=== PATIENT | male | born 1960 | race Caucasian/White ===

== ENCOUNTER 2016-10-20 06:10 | Emergency (ER) ==
[2016-10-20 06:18] VITALS: BP 168/105
[2016-10-20] MEDS ORDERED: NAPROSYN PO ONE (07:24)
[2016-10-20] MEDS ORDERED: ROBAXIN PO ONE (07:25)
--- NOTE | 2016-10-20 07:31 | PROVIDER DOCUMENTATION ---
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 it has been over a year since he has had a spell and asks if a steroid shot would help and i advised him that there is no evidence of improvement and a risk of infectious complications Review of Systems - Adult - REVIEW OF SYSTEMS - ADULT Constitutional: denies: chills, fever Eyes: denies: discharge, blurred vision Ears, Nose, Mouth & Throat: denies: hearing loss, sinus problem Cardiovascular: denies: chest pain, heart murmur, irregular heart rate Respiratory: denies: chronic cough, shortness of breath Gastrointestinal: denies: abdominal pain, frequent heartburn Genitourinary: denies: dysuria, hematuria Musculoskeletal: reports: muscle aches. denies: bone pain, joint pain, muscle weakness Integumentary: denies: itching, rash Neurological: denies: dizziness/vertigo, numbness, tremors Hematologic/Lymphatic: denies: low blood count, lymphedema Allergic/Immunologic: denies: eczema, frequent infections, hives Past History - Adult - PAST MEDICAL HISTORY-ADULT Review of Records: reports: Nursing Assessment Review, Medications Reviewed Major Childhood Illnesses: reports: denies history Cardiovascular: reports: HTN Respiratory: reports: denies history Gastrointestinal: reports: denies history Obstetrical/Gynecological: reports: denies history Genitourinary: reports: denies history Musculoskeletal: reports: denies history Neurological: reports: denies history Endocrine/Immune: reports: denies history Other Conditions: reports: denies history - IMMUNIZATION STATUS Childhood Immunizations: See Nurse Assessment Flu Vaccine: See Nurse Assessment - FAMILY HISTORY Family History: reviewed, not pertinent Physical Exam-Injury Related - Physical Exam-Injury Related Initial Vital Signs Reviewed: Yes General Appearance: appears well, alert, no apparent distress Eyes: PERRL/EOMI, pink conjunctivae Head, Ears, Nose, Mouth & Throat: normocephalic/atraumatic, moist mucous membranes, normal ENT inspection, TMs normal Neck: non-tender, full range of motion, supple, normal inspection Respiratory: chest non-tender, lungs clear, no pleuratic chest pain, no respiratory distress, no accessory muscle use Cardiovascular: normal peripheral pulses, regular rate, rhythm, no edema, no JVD Abdominal Exam: normal bowel sounds, non tender, soft Lymphatic: no adenopathy Back Exam: normal inspection, no CVA tenderness, no vertebral tenderness, other ([id number], Justin mildly positive) Integumentary: normal color, warm/dry, blanching Psych/Mental Status: normal mood/affect, normal thought content, normal thought process, oriented x 3 Progress - PLAN OF CARE/RESULTS Progress/Plan/Lab Results: Vital Signs Temp Pulse Resp BP Pulse Ox 10/20/16 06:13 98.4 F 100 H 20 168/105 100 No Known Allergies Allergy (Verified 06/14/16 09:08) No Home Medications 10/20/16 Orders Category Date Time Status Methocarbamol [Robaxin] Med 10/20/16 07:25 Discontinued 750 mg PO NOW ONE Naproxen [Naprosyn] Med 10/20/16 07:24 Discontinued 500 mg PO NOW ONE Departure - Departure Time of Disposition Order: 07:30 DIAGNOSIS: Back ache Qualifiers: Back pain location: low back pain Chronicity: acute Back pain laterality: bilateral Sciatica presence: without sciatica Qualified Code(s): M54.5 - Low back pain Disposition: HOME 01 Certified Medical Emergency: Emergent Condition: Stable Additional Instructions: ED Follow Up Instructions: You have been treated by a care provider in the Emergency Department. These instructions are being provided to you so you can have an understanding of how to care for yourself upon discharge. Upon discharge from the Emergency Department, you are responsible for making arrangements for follow-up care by a physician of your choice. Take all prescribed medications as directed. Return to the Emergency Department immediately for any new or worsening symptoms. You may call the Physician Referral phone number at [phone] to obtain a list of Physicians who are taking new patients. Prescriptions: Naproxen 500 mg PO BID PRN PRN #60 tablet PRN Reason: Pain Methocarbamol [Robaxin-750] 750 mg PO BID PRN #60 tablet PRN Reason: muscle spasm
[2016-10-20] MEDS ORDERED: NAPROSYN ONE (07:39)
== END 2016-10-20 07:44 | disposition home or self-care (01) ==
LOC: P.ED 06:10
DX: M54.5 Low back pain (principal); M79.1 Myalgia; I10 Essential (primary) hypertension
CPT/HCPCS: 99282